=== PATIENT | male | born 1990 | race Native Hawaiian/Other Pacific Islander ===

== ENCOUNTER 2016-10-11 19:06 | Emergency (ER) | payer OTHER ==
[~2016-10-11] VITALS: Ht 193 cm; Wt 108.9 kg
[2016-10-11 20:14] VITALS: BP 127/67; TEMP 98.6
[2016-10-16] MEDS ORDERED: CEPH500C20 PO (18:31)
== END 2016-10-11 20:15 | disposition home or self-care (01) ==
LOC: ED 19:06
DX: S10.96XA Insect bite of unspecified part of neck, initial encounter (principal); W57.XXXA Bitten or stung by nonvenomous insect and other nonvenomous arthropods, initial encounter; Y92.098 Other place in other non-institutional residence as the place of occurrence of the external cause
CPT/HCPCS: 99281

== ENCOUNTER 2016-12-25 20:26 | Emergency (ER) | payer OTHER ==
[~2016-12-25] VITALS: Ht 193 cm; Wt 122.5 kg
[~2016-12-25 20:26] MED LIST: CEPH500C20 PO
[2016-12-25 21:20] LABS: PLATELET COUNT 274 K/uL (142-355)
[2016-12-25 21:25] LABS: POTASSIUM 3.5 mmol/L (3.6-5.2); SODIUM 134 mmol/L (136-145)
[2016-12-25 22:19] VITALS: BP 130/73; TEMP 98.7
== END 2016-12-25 22:23 | disposition home or self-care (01) ==
LOC: ED 20:26
DX: F31.9 Bipolar disorder, unspecified (principal); F19.10 Other psychoactive substance abuse, uncomplicated
CPT/HCPCS: 36415; 80053; 80307; 80320; 80329; 81000; 85027; 99283; G0479

== ENCOUNTER 2017-04-08 19:06 | Emergency (ER) | payer OTHER ==
[~2017-04-08] VITALS: Ht 193 cm; Wt 126.1 kg
[2017-04-08 20:30] LABS: PLATELET COUNT 257 K/uL (142-355)
[2017-04-08 20:50] VITALS: BP 130/72; TEMP 98.1
== END 2017-04-08 20:50 | disposition home or self-care (01) ==
LOC: ED 19:06
DX: L03.114 Cellulitis of left upper limb (principal)
CPT/HCPCS: 36415; 85027; 99283

== ENCOUNTER 2017-05-28 21:26 | Emergency (ER) | payer OTHER ==
[~2017-05-28] VITALS: Ht 193 cm; Wt 122.5 kg
[2017-05-28 22:00] LABS: PLATELET COUNT 295 K/uL (142-355)
[2017-05-28 22:10] VITALS: BP 135/80; TEMP 98.2
== END 2017-05-28 22:17 | disposition home or self-care (01) ==
LOC: ED 21:26
DX: L03.114 Cellulitis of left upper limb (principal)
CPT/HCPCS: 36415; 85027; 99282

== ENCOUNTER 2018-03-09 14:42 | Inpatient (IN) | payer OTHER ==
[2018-03-09] VITALS (11 sets, daily range): BP systolic 47–160; BP diastolic 29–112; TEMP 97.9–98.7; Ht 193 cm; Wt 142.9 kg
[~2018-03-09] VITALS: Ht 193 cm; Wt 142.9 kg
[2018-03-09 15:55] LABS: PLATELET COUNT 286 K/uL (142-355)
[2018-03-09 16:12] LABS: POTASSIUM 3.5 mmol/L (3.6-5.2); SODIUM 136 mmol/L (136-145)
[2018-03-10] VITALS (21 sets, daily range): BP systolic 93–132; BP diastolic 51–93; TEMP 97.8–98.6
[2018-03-10 05:40] LABS: PLATELET COUNT 240 K/uL (142-355)
[2018-03-10 06:41] LABS: POTASSIUM 3.5 mmol/L (3.6-5.2); SODIUM 136 mmol/L (136-145)
[2018-03-11] VITALS (14 sets, daily range): BP systolic 118–156; BP diastolic 64–99; TEMP 97.5–98.1
[2018-03-11 06:33] LABS: PLATELET COUNT 201 K/uL (142-355)
[2018-03-11 11:22] LABS: POTASSIUM 3.8 mmol/L (3.6-5.2)
[2018-03-12] VITALS: BP 136/86; TEMP 97.8
[2018-03-12 04:00] VITALS: BP 139/88; TEMP 98.1
[2018-03-12 07:26] LABS: PLATELET COUNT 219 K/uL (142-355)
[2018-03-12 07:37] LABS: POTASSIUM 3.8 mmol/L (3.6-5.2)
[2018-03-12 08:00] VITALS: BP 126/63; TEMP 98
== END 2018-03-12 09:50 | disposition home or self-care (01) | DRG 918 ==
LOC: ED 14:42 → ICU 19:25
PROVIDERS: Emergency Medicine; Internal Medicine
DX: T50.991A Poisoning by other drugs, medicaments and biological substances, accidental (unintentional), initial encounter (principal); N17.8 Other acute kidney failure; M62.82 Rhabdomyolysis; E86.0 Dehydration; R07.89 Other chest pain; R11.2 Nausea with vomiting, unspecified; R55 Syncope and collapse
CPT/HCPCS: 36415; 80053; 80307; 81000; 82150; 82550; 82553; 83690; 84484; 85027; 93005; 96361; 96365; 96374; 96376; 99285; J1885; J2060; J2550; J3490; Q9963